=== PATIENT | female | born 1960 | race Caucasian/White ===

== ENCOUNTER → 2018-08-21 07:46 | Outpatient (CLI) | payer OTHER, SELFPAY ==
[2018-08-21 12:37] LABS: Microalbumin,Random Urine 14.9 mg/L (NO RANGE EST.); Microalbumin:Creatinine Ratio 12.1 mg/g CRE (<30 mg/g CRE)
[2018-08-21 12:41] LABS: Absolute Lymphocyte Count 1.63 X10^3/ul (0.83-4.51); Absolute Neutrophil Count 3.5 X10^3/uL (2.0-7.7); Basophil# 0.02 X10^3/uL; Basophil% 0.3 % (0-1); Eosinophil# 0.41 X10^3/uL; Eosinophils% 6.9 % (0-5); Hematocrit 39.1 % (37-47); Hemoglobin 13.3 g/dl (12.0-15.0); Lymphocyte # 1.63 X10^3/ul (4.0); Lymphocyte % 27.3 % (19-41); Mean Corpuscular Hgb 31.9 pg (27.0-32.0); Mean Corpuscular Volume 93.8 fL (81-99); Mean Platelet Vol. 9.8 fl (6.2-12.0); Monocyte# 0.43 X10^3/uL; Monocyte% 7.2 % (0-10); Neutrophil # 3.46 X10^3/uL (2.7-7.7); Neutrophil % 58.1 % (47-70); Platelet Count 236 K/mm3 (150-450); RBC Distribution Width CV 13.3 % (11.6-14.6); RBC Distribution Width SD 44.1 fl (35.1-43.9); Red Blood Count 4.17 M/mm3 (4.2-5.4)
[2018-08-21 12:45] LABS: POSITIVE COUNT NO; POSITIVE DIFFERENTIAL NO; POSITIVE MORPHOLOGY NO
[2018-08-21 12:56] LABS: Vitamin D,25 Hydroxy 69.4 ng/mL (29.95-100.01)
[2018-08-21 13:02] LABS: ALB/GLOB Ratio 1.1 RATIO (0.9-2.4); AST(SGOT) 23 U/L (15-37); Alanine Aminotransfer ALT/SGPT 44 U/L (13-56); Albumin, Serum 3.9 g/dL (3.2-5.0); Alkaline Phosphatase 91 U/L (45-117); Anion Gap 9 (5-15); BUN 18 mg/dL (7-18); BUN/Creat Ratio 15.8 RATIO (10-20); Chloride 108 mmol/L (98-107); Cholesterol 152 mg/dL (200); Creatinine, Serum 1.14 mg/dL (0.55-1.02); EST Glomerular Filtration Rate 52 mL/min (>60); Est Glom Filt Rate - Afr Amer 63 mL/min (>60); Globulin 3.4 g/dL (2.2-4.2); Glucose 117 mg/dL (74-106); Hemoglobin A1c 6.2 % (4.2-6.3); High Density Lipoprotein 42 mg/dL; Potassium 4.2 mmol/L (3.5-5.1); Protein, Total 7.3 g/dL (6.4-8.2); Sodium Level 142 mmol/L (136-145); T4 Free Direct 0.98 ng/dL (0.76-1.46); Thyroid Stim Hormone (TSH) 2.62 uIU/mL (0.358-3.74); Triglycerides 135 mg/dL; Very Low Density Lipoprotein 27 mg/dL (5-40)
== END ==
LOC: LAB.FUTURE 06-18 09:48 → BFHLAB 02-11 10:21
PROVIDERS: Family Provider Family Medicine; PCP Family Medicine; Visit Provider Family Medicine
DX: I12.9 Hypertensive chronic kidney disease with stage 1 through stage 4 chronic kidney disease, or unspecified chronic kidney disease (principal); N18.3 Chronic kidney disease, stage 3 (moderate); E55.9 Vitamin D deficiency, unspecified; R73.01 Impaired fasting glucose; R53.83 Other fatigue
CPT/HCPCS: 36415; 80053; 80061; 82043; 82306; 82570; 83036; 84439; 84443; 85025

== ENCOUNTER → 2020-02-01 09:44 | Outpatient (CLI) | payer OTHER, SELFPAY ==
[2020-02-01 12:10] LABS: Absolute Lymphocyte Count 1.66 X10^3/uL (0.83-4.51); Absolute Neutrophil Count 3.9 X10^3/uL (2.0-7.7); Basophil# 0.03 X10^3/uL; Basophil% 0.5 % (0-1); Eosinophil# 0.47 X10^3/uL; Eosinophils% 7.3 % (0-5); Hematocrit 39.9 % (37-47); Hemoglobin 12.8 g/dL (12.0-15.0); Lymphocyte # 1.66 X10^3/ul (4.0); Lymphocyte % 25.7 % (19-41); Mean Corp Hgb Conc 32.1 g/dL (32-36); Mean Corpuscular Hgb 31.1 pg (27.0-32.0); Mean Corpuscular Volume 96.8 fL (81-99); Mean Platelet Vol. 9.6 fl (6.2-12.0); Monocyte# 0.36 X10^3/uL; Monocyte% 5.6 % (0-10); NRBC Flagged by Analyzer 0 % (0-5); Neutrophil # 3.92 X10^3/uL (2.7-7.7); Neutrophil % 60.7 % (47-70); Platelet Count 238 K/mm3 (150-450); RBC Distribution Width CV 13.2 % (11.6-14.6); RBC Distribution Width SD 46.5 fl (35.1-43.9); Red Blood Count 4.12 M/mm3 (4.2-5.4); White Blood Count 6.5 K/mm3 (4.4-11.0)
[2020-02-01 12:29] LABS: Hemoglobin A1c 5.8 % (3.8-5.6); Vitamin D,25 Hydroxy 58.6 ng/mL
[2020-02-01 12:47] LABS: ALB/GLOB Ratio 1.2 RATIO (0.9-2.4); AST(SGOT) 22 U/L (15-37); Alanine Aminotransfer ALT/SGPT 39 U/L (13-56); Alkaline Phosphatase 95 U/L (45-117); Anion Gap 4 (5-15); BUN 20 mg/dL (7-18); BUN/Creat Ratio 18.5 RATIO (10-20); Calcium,Total 9.2 mg/dL (8.5-10.1); Chloride 108 mmol/L (98-107); Cholesterol 197 mg/dL (200); Creatinine, Serum 1.08 mg/dL (0.55-1.02); EST Glomerular Filtration Rate 55 mL/min (>60); Est Glom Filt Rate - Afr Amer 67 mL/min (>60); Globulin 3.3 g/dL (2.2-4.2); Glucose 112 mg/dL (74-106); High Density Lipoprotein 51 mg/dL; Potassium 4.6 mmol/L (3.5-5.1); Protein, Total 7.3 g/dL (6.4-8.2); Sodium Level 139 mmol/L (136-145); Triglycerides 126 mg/dL; Very Low Density Lipoprotein 25 mg/dL (5-40)
[2020-02-01 12:53] LABS: Microalbumin,Random Urine 6.5 mg/L (NO RANGE EST.)
== END ==
PROVIDERS: PCP Family Medicine; Visit Provider Family Medicine
DX: I12.9 Hypertensive chronic kidney disease with stage 1 through stage 4 chronic kidney disease, or unspecified chronic kidney disease (principal); N18.3 Chronic kidney disease, stage 3 (moderate); E55.9 Vitamin D deficiency, unspecified; E66.01 Morbid (severe) obesity due to excess calories; R73.01 Impaired fasting glucose
CPT/HCPCS: 36415; 80053; 80061; 82043; 82306; 82570; 83036; 85025

== ENCOUNTER → 2020-03-19 15:49 | Outpatient (CLI) | payer OTHER, SELFPAY ==
[2020-03-19 17:56] LABS: Free T3 2.8 pg/mL (2.18-3.98); T4 Free Direct 1.24 ng/dL (0.76-1.46); T4 Total, Thyroxin 8.8 ug/dL (4.8-13.9); Thyroid Stim Hormone (TSH) 1.44 uIU/mL (0.358-3.74)
[2020-03-19 18:04] LABS: T3 Total - Triiodothyronine 0.98 ng/mL (0.6-1.81)
[2020-03-21 16:08] LABS: Thyroid Peroxidase AB 24 IU/mL (0-34)
[2020-03-21 16:56] LABS: Thyroglobulin Antibody < 1.0 IU/mL (0.0-0.9)
== END ==
PROVIDERS: PCP Family Medicine; Visit Provider Family Medicine
DX: E01.0 Iodine-deficiency related diffuse (endemic) goiter (principal)
CPT/HCPCS: 36415; 84436; 84439; 84443; 84480; 84481; 86376; 86800

== ENCOUNTER → 2020-03-21 16:28 | Outpatient (CLI) | payer OTHER, SELFPAY ==
[2020-03-21 17:15] LABS: Erythrocyte Sedimentation Rate 18 mm/hr (0-30)
[2020-03-21 18:02] LABS: CRP 3.84 mg/L (0.0-3.0); Rheumatoid Factor < 10.0 IU/mL (<15)
[2020-03-26 05:06] LABS: CCP IgG Antibodies 6 units (0-19)
== END ==
PROVIDERS: PCP Family Medicine; Visit Provider Family Medicine
DX: M13.0 Polyarthritis, unspecified (principal)
CPT/HCPCS: 36415; 85652; 86140; 86200; 86431

== ENCOUNTER → 2022-03-23 | Outpatient (CLI) | payer BC, SELFPAY ==
[2022-03-23 13:39] LABS: Absolute Neutrophil Count 3.4 X10^3/uL (2.0-7.7); Basophil# 0.04 X10^3/uL; Basophil% 0.6 % (0-1); Eosinophil# 0.67 X10^3/uL; Eosinophils% 10.5 % (0-5); Hematocrit 42.7 % (37-47); Hemoglobin 14.3 g/dL (12.0-15.0); Lymphocyte % 29.8 % (19-41); Mean Corp Hgb Conc 33.5 g/dL (32-36); Mean Corpuscular Hgb 32.1 pg (27.0-32.0); Mean Corpuscular Volume 95.7 fL (81-99); Monocyte# 0.32 X10^3/uL; NRBC Flagged by Analyzer 0 % (0-5); Neutrophil # 3.43 X10^3/uL (2.7-7.7); Neutrophil % 53.9 % (47-70); Platelet Count 261 K/mm3 (150-450); RBC Distribution Width CV 12.7 % (11.6-14.6); RBC Distribution Width SD 44.5 fl (35.1-43.9); Red Blood Count 4.46 M/mm3 (4.2-5.4); White Blood Count 6.4 K/mm3 (4.4-11.0)
[2022-03-23 13:58] LABS: Hemoglobin A1c 5.7 % (3.8-5.6)
[2022-03-23 14:14] LABS: Vitamin D,25 Hydroxy 76.6 ng/mL
[2022-03-23 14:21] LABS: ALB/GLOB Ratio 1.1 RATIO (0.9-2.4); AST(SGOT) 21 U/L (15-37); Alanine Aminotransfer ALT/SGPT 30 U/L (13-56); Albumin, Serum 4.1 g/dL (3.2-5.0); Alkaline Phosphatase 85 U/L (45-117); Anion Gap 9 (5-15); BUN 15 mg/dL (7-18); BUN/Creat Ratio 13.8 RATIO (10-20); Chloride 107 mmol/L (98-107); Cholesterol 202 mg/dL (200); Creatinine, Serum 1.09 mg/dL (0.55-1.02); EST Glomerular Filtration Rate 54 mL/min (>60); Est Glom Filt Rate - Afr Amer 66 mL/min (>60); Globulin 3.6 g/dL (2.2-4.2); Glucose 107 mg/dL (74-106); High Density Lipoprotein 61 mg/dL; Potassium 4.3 mmol/L (3.5-5.1); Protein, Total 7.7 g/dL (6.4-8.2); Sodium Level 142 mmol/L (136-145); T4 Free Direct 1.04 ng/dL (0.76-1.46); Thyroid Stim Hormone (TSH) 2.23 uIU/mL (0.358-3.74); Triglycerides 97 mg/dL; Very Low Density Lipoprotein 19 mg/dL (5-40)
== END | disposition home or self-care (01) ==
LOC: LAB 13:10
PROVIDERS: PCP Family Medicine; Visit Provider Family Medicine
DX: Z00.00 Encounter for general adult medical examination without abnormal findings (principal); E03.9 Hypothyroidism, unspecified; E55.9 Vitamin D deficiency, unspecified; R73.01 Impaired fasting glucose
CPT/HCPCS: 36415; 80053; 80061; 82306; 83036; 84439; 84443; 85025

== ENCOUNTER 2022-09-10 06:40 | Day surgery (SDC) | payer OTHER, SELFPAY ==
[2022-09-10] VITALS (7 sets, daily range): BP systolic 91–136; BP diastolic 62–96; PULSE 74–96; RESP 16–18; TEMP 36.6–37.1; O2SAT 94–100; BMI 30.9
[2022-09-10] MEDS: Lactated Ringers 1,000 ML 15 ML IV (07:12)
--- NOTE | 2022-09-10 07:50 | H&P.OPEN ---
HPI - General HPI Narrative JASMINE SANDERS, is a 62 F who presents for screening colonoscopy. She has no history of colonoscopy in the past. She has no family history of colon cancer. She denies any abdominal pain or blood in the stool. [facility] Medical History (Updated 08/10/22 @ 09:42 by Nya Sánchez) Alcohol use Arthritis Asthma Back pain Cardiology follow-up encounter CKD (chronic kidney disease) Heart murmur History of echocardiogram History of irregular heartbeat History of renal disease HTN (hypertension) Hypothyroid IFG (impaired fasting glucose) Injury of back Leg cramps MVP (mitral valve prolapse) Non-smoker Polycystic ovaries Post-menopausal Sciatica Seasonal allergies SVT (supraventricular tachycardia) Thyroid disease Vitamin D deficiency Wears glasses Home Medications Lactobacillus rhamnosus GG 20 billion cell capsule (Probiotic Digestive Care) 1 cell PO DAILY 07/09/22 [History Last Taken Unknown] albuterol sulfate 90 mcg/actuation aerosol inhaler (Ventolin HFA) 2 puff inhalation Q6H PRN ASTHMA 07/09/22 [History Last Taken Unknown] aspirin 81 mg tablet,delayed release (Adult Low Dose Aspirin) 81 mg PO DAILY 07/09/22 [History Last Taken Unknown] cetirizine 10 mg capsule (All Day Allergy (cetirizine)) 10 mg PO DAILY PRN ALLERGIES 07/09/22 [History Last Taken Unknown] diclofenac sodium 1 % topical gel (Arthritis Pain (diclofenac)) 2 g topical ONCE PRN PAIN' 07/09/22 [History Last Taken Unknown] losartan 100 mg tablet 100 mg PO DAILY 07/09/22 [History Last Taken 09/10/22 06:00] magnesium oxide 500 mg capsule 500 mg PO DAILY 07/09/22 [History Last Taken Unknown] metoprolol succinate 50 mg tablet,extended release 24 hr 50 mg PO DAILY 07/09/22 [History Last Taken 09/10/22 06:00] montelukast 10 mg tablet (Singulair) 10 mg PO DAILY PRN ALLERGIES 07/09/22 [History Last Taken Unknown] multivitamin 1 tab PO DAILY 07/09/22 [History Last Taken Unknown] tizanidine 2 mg capsule 2 mg PO TID PRN Muscle Pain 07/09/22 [History Last Taken Unknown] vitamin D3 250 mcg (10,000 unit)-vitamin K2 45 mcg capsule 1 cap PO DAILY 07/09/22 [History Last Taken Unknown] levothyroxine 50 mcg tablet 50 mcg PO DAILY 08/10/22 [History Last Taken 09/10/22 06:00] magnesium glycinate 100 mg tablet 200 mg PO QHS 08/10/22 [History Last Taken Unknown] Allergy/AdvReac Type Severity Reaction Status Date / Time mold Allergy Severe ASTHMA,JOSE Verified 08/10/22 09:27 ESTION Sulfa (Sulfonamide Allergy Hives Verified 08/10/22 09:27 Antibiotics) Family History (Updated 07/09/22 @ 11:33 by Corin Booker) Father Colon polyp Blood coagulation disorder Heart disease Hypertension Myocardial infarction Mother Cervical cancer Asthma Pulmonary embolism Surgical History (Updated 08/10/22 @ 09:42 by Nya Sánchez) Hx of section Hx of hysterectomy, total Hx of tonsillectomy Social History (Updated 07/09/22 @ 11:36 by Corin Booker) current occupational status: employed current occupation: Nurse Smoking Status: Never smoker Past Medical/Surgical History Planned Operation Planned Operative Procedure/s: COLONOSCOPY Previous Hospitalizations/Surgeries HX Hospitalizations: No Any Problems With Anesthesia: Yes (HARD TIME WAKING) You/Your Family Experience Fever (Hyperthermia) With Anes: No Cholinesterase deficiency: No Cardiovascular Hx Hypertension: Yes (CONTROLLED ON MED) Respiratory Hx Sleep Apnea: No Hx Respiratory Tract Infection/Cold (presently): No Do You Snore Loudly (louder than talking or can be heard): No Do You Often Feel Tired/ Fatigued/ Sleepy Dring Daytime?: No Has Anyone Observed You Stop Breathing During Sleep?: No Result (for STOP score): Negative Smoking Status: Never smoker Neurological Does patient have nerve stimulator: No Miscellaneous Recent Exposure to Contagious Disease: No Allergies mold Allergy (Severe, Verified 08/10/22 09:27) ASTHMA,CONGESTION Sulfa (Sulfonamide Antibiotics) Allergy (Verified 08/10/22 09:27) Hives Discharge Is Pt Admitted From a [facility], or a Care Home: No After D/C, Where Do you Plan to Go: Return Home Vital Signs Vital Signs Vital Signs: 09/10/22 07:13 09/10/22 07:13 Temperature 98.7 F Temperature Source Temporal Pulse Rate 95 Respiratory Rate 18 Respiratory Pattern Normal Blood Pressure 136/96 H Blood Pressure Mean 109 Blood Pressure Source Monitor Blood Pressure Position Semi-Fowlers Blood Pressure Location Right Arm Pulse Ox 100 Oxygen Delivery Method Room Air Weight Weight: 192 lb Body Mass Index (BMI) 30.9 Physical Exam Const alert and oriented x3 HEENT normocephalic Eyes PERRL Resp normal respiratory effort and normal air movement Cardio regular rate and regular rhythm GI soft to palpation, non-tender and non-distended Extremity normal to inspection Assessment & Plan Assessment/Plan (1) Encounter for screening for malignant neoplasm of colon: PLAN: I explained endoscopy in detail to the patient. I explained the risks including but not limited to stroke or heart attack with anesthesia, perforation of the GI tract, bleeding, infection. I explained that any of these could necessitate further emergency surgery. The patient understands and all questions were answered sufficiently. The patient wishes to proceed with procedure. Robson Navarro MD Pager: [facility] [address] [place] [address], [address] [place] [address] Office: Surgery Risks - Colonoscopy Risks Include but are not Limited To: Risks include but are not limited to: Bleeding, perforation requiring further surgery, inability to complete colonoscopy requiring barium enema.
--- NOTE | 2022-09-10 08:00 | COLBX_PTH ---
PATIENT: JASMINE SANDERS LOC: EN U#:[id number] AGE/SX: 62/F ROOM: RE09/10/[address]: Dr. Robson Navarro MD : 1960 BED: DIS: 09/10/2022 SPEC #: [id number] RECD: 09/10/22 10:23 STATUS: HERLINDA MELODY #: [id number] SETH: 09/10/22 08:[address]: Robson Navarro DEPT: SURGICAL PATHOLOGY RECD BY: Carlotta Mccartney ENTERED: 09/10/22 11:27 SP TYPE: COLON BX OTHR DR: Dr. Nolan Barrios, Tissues: Transverse colon Procedures: Surgery Specimen Level IV HEADER OPERATION: Colonoscopy ? open access (MAC), polypectomy PRE-OP DIAGNOSIS: Screening TISSUE SUBMITTED: Transverse polyp MICROSCOPIC DIAGNOSIS Transverse colon polyp, polypectomy: Tubular adenoma. ISABEL:alejandra 09/13/2022 MICROSCOPIC DESCRIPTION Slides are reviewed. GROSS DESCRIPTION Received in fixative is one container labeled with the patient's name and designated transverse polyp. The specimen consists of a macario-pink polyp measuring 0.8 x 0.7 x 0.3 cm. The specimen is totally submitted in one cassette. / SJ:alejandra 09/10/2022 TC:1 CPT: 65271
--- NOTE | 2022-09-10 08:18 | OP.COLON_ITS ---
Patient Name: Sakina Mosher Procedure Date: 09/10/2022 7:52 AM Date of : 1960 Age: 62 Procedure: Colonoscopy Indications: Screening for colorectal malignant neoplasm Providers: Robson Navarro MD Medicines: Monitored Anesthesia Care Patient Profile: This is a 62 year old female. Refer to note in patient chart for documentation of history and physical. Last Colonoscopy: none. The patient's first colonoscopy is today. Complications: No immediate complications. Procedure: Pre-Anesthesia Assessment: - Prior to the procedure, a History and Physical was performed, and patient medications and allergies were reviewed. The patient's tolerance of previous anesthesia was also reviewed. The risks and benefits of the procedure and the sedation options and risks were discussed with the patient. All questions were answered, and informed consent was obtained. Prior Anticoagulants: The patient has taken no previous anticoagulant or antiplatelet agents. After reviewing the risks and benefits, the patient was deemed in satisfactory condition to undergo the procedure. After I obtained informed consent, the scope was passed under direct vision. Throughout the procedure, the patient's blood pressure, pulse, and oxygen saturations were monitored continuously. The pediatric colonoscope was introduced through the anus and advanced to the cecum, identified by appendiceal orifice and ileocecal valve. The colonoscopy was performed without difficulty. The patient tolerated the procedure well. The quality of the bowel preparation was good. Scope In: 8:00:40 AM Scope Withdrawal Time 0 hours 6 minutes 3 seconds Scope Out: 8:14:08 AM Total Procedure Duration Time 0 hours 13 minutes 28 seconds Findings: A small polyp was found in the transverse colon. The polyp was pedunculated. The polyp was removed with a hot snare. Resection and retrieval were complete. The exam was otherwise without abnormality on direct and retroflexion views. Impression: - One small polyp in the transverse colon, removed with a hot snare. Resected and retrieved. - The examination was otherwise normal on direct and retroflexion views. Recommendation: - Discharge patient to home. - Resume previous diet. - Continue present medications. - Await pathology results. - Repeat colonoscopy in 5 years for surveillance. Procedure Code(s): --- Professional --- 48302, 33, Colonoscopy, flexible; with removal of tumor(s), polyp(s), or other lesion(s) by snare technique Diagnosis Code(s): --- Professional --- Z12.11, Encounter for screening for malignant neoplasm of colon D12.3, Benign neoplasm of transverse colon (hepatic flexure or splenic flexure) CPT copyright 2017 [employer]. All rights reserved. The codes documented in this report are preliminary and upon nursing informatics analyst review may be revised to meet current compliance requirements. Robson Navarro MD 09/10/2022 8:18:08 AM This report has been signed electronically. Number of Addenda: 0 Note Initiated On: 09/10/2022 7:52 AM
--- NOTE | 2022-09-10 08:19 | OP.CCLET_ITS ---
09/10/2022 Nolan Barrios [address] [place] [address] Re : Colonoscopy procedure for Sakina Mosher Dear Dr. Barrios This procedure was performed on Saturday, September 10, 2022. My impressions and recommendations are as follows: Impressions : - One small polyp in the transverse colon, removed with a hot snare. Resected and retrieved. - The examination was otherwise normal on direct and retroflexion views. Recommendations : - Discharge patient to home. - Resume previous diet. - Continue present medications. - Await pathology results. - Repeat colonoscopy in 5 years for surveillance. My findings are described in the full procedure note, which is enclosed. If I can be of further assistance, please feel free to contact me at Doctor phone number(s): , Work: . Sincerely, Robson Navarro MD 09/10/2022 8:18:08 AM This report has been signed electronically.
== END 2022-09-10 09:08 | disposition home or self-care (01) ==
LOC: EN 06:41 → AC 06:42
PROVIDERS: PCP Family Medicine; Referring Provider Family Medicine; Visit Provider Surgery
PROC: 0DJD8ZZ Inspection of Lower Intestinal Tract, Via Natural or Artificial Opening Endoscopic (ICD-10-PCS; CPT 45378; principal; 2022-09-10 07:55)
DX: Z12.11 Encounter for screening for malignant neoplasm of colon (principal); D12.3 Benign neoplasm of transverse colon; I12.9 Hypertensive chronic kidney disease with stage 1 through stage 4 chronic kidney disease, or unspecified chronic kidney disease; N18.9 Chronic kidney disease, unspecified; E55.9 Vitamin D deficiency, unspecified; E03.9 Hypothyroidism, unspecified; E07.9 Disorder of thyroid, unspecified; J45.909 Unspecified asthma, uncomplicated; Z79.899 Other long term (current) drug therapy; Z79.82 Long term (current) use of aspirin
CPT/HCPCS: 45385; 88305; J7120; J2405

== ENCOUNTER → 2025-02-07 | Outpatient (CLI) | payer OTHER, SELFPAY ==
[2025-02-07 15:25] LABS: Hematocrit 40.0 % (37-47); Hemoglobin 13.4 g/dL (12.0-15.0); Immature Granulocytes Count 0.010 X10^3/uL (0.0-0.0); Mean Corp Hgb Conc 33.5 g/dL (32-36); Mean Corpuscular Volume 94.8 fL (81-99); Mean Platelet Vol. 9.3 fl (6.2-12.0); NRBC Flagged by Analyzer 0 % (0-5); Platelet Count 249 K/mm3 (150-450); RBC Distribution Width CV 13.0 % (11.6-14.6); RBC Distribution Width SD 44.9 fl (35.1-43.9); Red Blood Count 4.22 M/mm3 (4.2-5.4); White Blood Count 6.1 K/mm3 (4.4-11.0)
[2025-02-07 16:16] LABS: AST(SGOT) 25 U/L (<=31); Alanine Aminotransfer ALT/SGPT 22 U/L (<=34); Albumin, Serum 4.6 g/dL (3.4-4.8); Alkaline Phosphatase 75 U/L (35-104); Anion Gap 15 (5-15); BUN 18 mg/dL (4-19); BUN/Creat Ratio 14.8 RATIO (10-20); Calcium,Total 10.1 mg/dL (7.6-11.0); Carbon Dioxide 23.8 mmol/L (21.0-32.0); Chloride 102 mmol/L (98-108); Globulin 2.7 g/dL (2.2-4.2); Glucose 97 mg/dL (70-99); Potassium 4.1 mmol/L (3.3-5.1); Vitamin B12 247 pg/mL (180-914); Vitamin D,25 Hydroxy 82.8 ng/mL (30-100)
[2025-02-07 16:17] LABS: CRP < 3.00 mg/L (0.0-3.0)
== END | disposition home or self-care (01) ==
PROVIDERS: PCP Family Medicine; Visit Provider Family Medicine
DX: I12.9 Hypertensive chronic kidney disease with stage 1 through stage 4 chronic kidney disease, or unspecified chronic kidney disease (principal); N18.31 Chronic kidney disease, stage 3a; R73.01 Impaired fasting glucose; E03.9 Hypothyroidism, unspecified; R51.9 Headache, unspecified; R53.83 Other fatigue; E55.9 Vitamin D deficiency, unspecified
CPT/HCPCS: 36415; 80053; 82306; 82607; 83036; 84439; 84443; 85025; 85652; 86140